=== PATIENT | male | born 1960 | race Caucasian/White ===

== ENCOUNTER → 2018-02-11 | Outpatient (CLI) | payer OTHER | LOC: RAD 14:46 | DX: L40.0 Psoriasis vulgaris (principal); Z79.899 Other long term (current) drug therapy ==

== ENCOUNTER → 2019-02-13 | Outpatient (CLI) | payer OTHER | LOC: RAD 15:05 | DX: J84.10 Pulmonary fibrosis, unspecified (principal); L40.0 Psoriasis vulgaris; Z79.899 Other long term (current) drug therapy ==

== ENCOUNTER → 2020-02-04 | Outpatient (CLI) | payer BC | LOC: RAD 08:23 | PROVIDERS: ATTEND Physician Assistant | DX: L40.0 Psoriasis vulgaris (principal); Z79.899 Other long term (current) drug therapy ==